=== PATIENT | male | born 1940 | race African-American/Black ===

== ENCOUNTER 2021-03-27 17:25 | Inpatient (IN) ==
[2021-03-27] MEDS ORDERED: ALBUTEROL/IPRATROPIUM 3 ML NEB RESP TX STA (17:51)
[2021-03-27] MEDS ORDERED: SODIUM CHLORIDE 0.9% 1,000 ML IV STA ×2 (18:22→19:23)
[2021-03-27] MEDS ORDERED: methylPREDNISolone SOD SUC 125 MG/2 ML VIAL IV STA (18:23)
[2021-03-27 18:40] LABS: Basophils % 0.5 % (0.0-0.8); Eosinophils % 0.2 % (0.00-10.9); Hematocrit 41.5 VOL% (42.0-52.0); Hemoglobin 13.3 GM/DL (14.0-18.0); Immature Granulocytes % 0.9 %; Immature Granulocytes Absolute 0.08 #; Lymphocytes # 0.5 10*3/uL (1.4-4.0); Lymphocytes % 5.4 % (21.2-54.2); Mean Corpuscular Volume 99.5 FL (87-102); Mean Platelet Volume 11.6 FL (9.6-12.0); Platelet Count 113 T/CUMM (130-400); Red Blood Count 4.17 MC/CUMM (3.8-5.5); Red Cell Distribution Width 13.8 % (9.3-17.3); White Blood Count 8.5 T/CUMM (4-12)
[2021-03-27 18:47] LABS: INR 0.9; PT Patient Result 10.5 SECS (10.5-12.0)
[2021-03-27 18:48] LABS: Alanine Aminotransferase 27 U/L (16-61); Albumin 3.7 G/DL (3.4-5.0); Alkaline Phosphatase 67 U/L (45-117); Aspartate Amino Transferase 60 U/L (0-37); Blood Urea Nitrogen 13 MG/DL (7-18); Calcium 9.1 MG/DL (8.5-10.1); Carbon Dioxide 28 MMOL/L (21-32); Estimated Glom Filtration Rate 74 ML/MIN; Glucose 128 MG/DL (74-106); Osmolality,Calculated 278.5 MOS/KG (273-304); Potassium 3.4 MMOL/L (3.5-5.1); Sodium 139 MMOL/L (136-145); Total Protein 7.2 G/DL (6.4-8.2)
[2021-03-27] MEDS ORDERED: ENOXAPARIN 30 MG/0.3 ML SYRINGE SUBCUT STA (19:22)
[2021-03-27] MEDS ORDERED: LEVOFLOXACIN INJ 750 MG/150 ML PREMIX IV STA (19:23)
[2021-03-27] MEDS ORDERED: LABETALOL 20 MG/4 ML SYRINGE IV STA (19:25)
[2021-03-27] MEDS ORDERED: ENOXAPARIN 100 MG/ML SYRINGE SUBCUT STA (20:06)
[2021-03-27] MEDS ORDERED: MORPHINE 2 MG/1 ML SYRINGE IV PRN (20:50)
[2021-03-27] MEDS ORDERED: guaiFENesin/DM ER 600-30 MG TABLET PO PRN (20:50)
[2021-03-27] MEDS ORDERED: GLUCAGON 1 MG VIAL IM PRN (20:50)
[2021-03-27] MEDS ORDERED: hydrALAZINE 20 MG/1 ML VIAL IV PRN (20:50)
[2021-03-27] MEDS ORDERED: ACETAMINOPHEN 325 MG TABLET PO PRN (20:50)
[2021-03-27] MEDS ORDERED: DOCUSATE SODIUM 100 MG CAPSULE PO PRN (20:50)
[2021-03-27] MEDS ORDERED: ONDANSETRON 4 MG/2 ML VIAL IV PRN (20:50)
[2021-03-27] MEDS ORDERED: NICOTINE 21 MG/24 HR PATCH TRANSDERM PRN (20:50)
[2021-03-27] MEDS ORDERED: LORazepam 2 MG/1 ML VIAL IV PRN (20:58)
[2021-03-27] MEDS ORDERED: DEXTROSE 10% 250 ML BAG IV PRN (20:58)
[2021-03-27] MEDS ORDERED: MAGNESIUM SULF RIDER 2 GM/50 ML PREMIX IV ONE (20:58)
[2021-03-27] MEDS ORDERED: cefTRIAXone 1,000 MG in SODIUM CHLORIDE 0.9% 100 ML IV SCH (21:00)
[2021-03-27 21:26] LABS: % Iron Saturation 6.9 % (18-50)
[2021-03-27 22:18] LABS: Bilirubin,Urine Negative (Negative); Blood, Urine Small mg/dL (Negative); Glucose,Urine (UA) Negative (Negative); Granular Casts,Urine 1 /LPF (0-1); Hyaline Casts,Urine 1 /LPF (0-3); Ketones,Urine Negative (Negative); Mucus,Urine Occasional /LPF (Occasional); Nitrite,Urine Negative (Negative); Protein,Urine 100 MG/DL; RBC,Urine 2 /HPF (0-4); Urine Appearance CLEAR (Clear); Urine Color Amber (Yellow); Urine Specific Gravity 1.024 (1.001-1.035)
[2021-03-27] MEDS: BUDESONIDE/FORMOTEROL 160-4.5 INHALER 6 GM INH SCH (22:41)
[2021-03-27 23:05] LABS: Folate > 24.00 NG/ML (5.38-24.0); Vitamin B12 601 PG/ML (211-911)
[2021-03-27] MEDS ORDERED: ALBUTEROL 2.5 MG/3 ML NEB RESP TX ONE (23:08)
[2021-03-28] MEDS: carvediloL 6.25 MG TABLET PO SCH ×3 (00:27→21:54)
[2021-03-28] MEDS: methylPREDNISolone SOD SUC 40 MG/1 ML VIAL IV SCH ×3 (00:28→18:29)
[2021-03-28] MEDS: AZITHROMYCIN INJ 500 MG in SODIUM CHLORIDE 0.9% 250 ML IV SCH ×2 (00:33→23:24)
[2021-03-28 05:32] LABS: Basophils % 0.5 % (0.0-0.8); Hematocrit 37.9 VOL% (42.0-52.0); Hemoglobin 11.8 GM/DL (14.0-18.0); Immature Granulocytes % 0.7 %; Immature Granulocytes Absolute 0.04 #; Lymphocytes # 0.3 10*3/uL (1.4-4.0); Lymphocytes % 5.6 % (21.2-54.2); Mean Corpuscular HGB Conc 31.1 GM/DL (32-36); Mean Corpuscular Volume 101.6 FL (87-102); Mean Platelet Volume 10.6 FL (9.6-12.0); Monocytes % 4.7 % (1.7-12.7); Neutrophils % 88.5 % (38.7-73.9); Platelet Count 99 T/CUMM (130-400); Red Blood Count 3.73 MC/CUMM (3.8-5.5); Red Cell Distribution Width 13.6 % (9.3-17.3); White Blood Count 5.7 T/CUMM (4-12)
[2021-03-28 05:35] LABS: Albumin 2.8 G/DL (3.4-5.0); Bilirubin,Total 0.4 MG/DL (0.20-1.00); Calcium 8.1 MG/DL (8.5-10.1); Osmolality,Calculated 281.5 MOS/KG (273-304); Potassium 4.6 MMOL/L (3.5-5.1); Risk Ratio 1.28; Total Protein 6.1 G/DL (6.4-8.2); VLDL Cholesterol 10.2 MG/DL
[2021-03-28 06:52] LABS: Platelet Estimate Adequate; Target Cells Few
[2021-03-28] MEDS: ALBUTEROL 2.5 MG/3 ML NEB RESP TX SCH ×2 (07:36)
[2021-03-28] MEDS ORDERED: LISINOPRIL/HCTZ 10-12.5 MG TABLET PO SCH (09:00)
[2021-03-28] MEDS ORDERED: methylPREDNISolone SOD SUC 125 MG/2 ML VIAL IV STA (09:10)
[2021-03-28] MEDS: ASPIRIN CHEW 81 MG TABLET PO SCH (10:04)
[2021-03-28] MEDS: MULTIVITAMIN (CENTRUM) TABLET PO SCH (10:04)
[2021-03-28] MEDS: PANTOPRAZOLE 40 MG TABLET PO SCH (10:04)
[2021-03-28] MEDS: FOLIC ACID 1 MG TABLET PO SCH (10:05)
[2021-03-28] MEDS: THIAMINE 100 MG TABLET PO SCH (10:05)
[2021-03-28] MEDS: BUDESONIDE/FORMOTEROL 160-4.5 INHALER 6 GM INH SCH ×2 (10:06→21:54)
[2021-03-28] MEDS ORDERED: FUROSEMIDE 40 MG/4 ML VIAL IV SCH (10:29)
[2021-03-28] MEDS: ALBUTEROL/IPRATROPIUM 3 ML NEB RESP TX SCH ×4 (10:55→22:55)
[2021-03-28] MEDS: MONTELUKAST 10 MG TABLET PO SCH (12:07)
[2021-03-28] MEDS: cefTRIAXone 2,000 MG in SODIUM CHLORIDE 0.9% 100 ML IV SCH (21:55)
[2021-03-28] MEDS: ENOXAPARIN 40 MG/0.4 ML SYRINGE SUBCUT SCH (21:55)
[2021-03-29] MEDS: methylPREDNISolone SOD SUC 40 MG/1 ML VIAL IV SCH ×4 (01:23→21:09)
[2021-03-29] MEDS: ALBUTEROL/IPRATROPIUM 3 ML NEB RESP TX SCH ×6 (02:45→23:50)
[2021-03-29 06:11] LABS: Basophils % 0.2 % (0.0-0.8); Hematocrit 37.8 VOL% (42.0-52.0); Immature Granulocytes % 0.7 %; Immature Granulocytes Absolute 0.09 #; Lymphocytes # 0.7 10*3/uL (1.4-4.0); Lymphocytes % 5.5 % (21.2-54.2); Mean Corpuscular HGB Conc 31.7 GM/DL (32-36); Mean Corpuscular Volume 101.6 FL (87-102); Monocytes % 8.3 % (1.7-12.7); Neutrophils % 85.3 % (38.7-73.9); Platelet Count 128 T/CUMM (130-400); Red Blood Count 3.72 MC/CUMM (3.8-5.5); Red Cell Distribution Width 13.2 % (9.3-17.3); White Blood Count 12.8 T/CUMM (4-12)
[2021-03-29 06:40] LABS: Alanine Aminotransferase 22 U/L (16-61); Albumin 2.8 G/DL (3.4-5.0); Alkaline Phosphatase 52 U/L (45-117); Aspartate Amino Transferase 60 U/L (0-37); Bilirubin,Total < 0.39 MG/DL (0.20-1.00); Blood Urea Nitrogen 24 MG/DL (7-18); Calcium 8.8 MG/DL (8.5-10.1); Carbon Dioxide 30 MMOL/L (21-32); Estimated Glom Filtration Rate 69 ML/MIN; Glucose 124 MG/DL (74-106); Osmolality,Calculated 283.4 MOS/KG (273-304); Potassium 4.5 MMOL/L (3.5-5.1); Sodium 140 MMOL/L (136-145); Total Protein 5.9 G/DL (6.4-8.2)
[2021-03-29] MEDS: THIAMINE 100 MG TABLET PO SCH (09:02)
[2021-03-29] MEDS: ASPIRIN CHEW 81 MG TABLET PO SCH (09:02)
[2021-03-29] MEDS: OLMESARTAN 20 MG TABLET PO SCH (09:02)
[2021-03-29] MEDS: carvediloL 6.25 MG TABLET PO SCH ×2 (09:02→21:09)
[2021-03-29] MEDS: FOLIC ACID 1 MG TABLET PO SCH (09:03)
[2021-03-29] MEDS: hydroCHLOROthiazide 25 MG TABLET PO SCH (09:03)
[2021-03-29] MEDS: MONTELUKAST 10 MG TABLET PO SCH (09:03)
[2021-03-29] MEDS: MULTIVITAMIN (CENTRUM) TABLET PO SCH (09:03)
[2021-03-29] MEDS: PANTOPRAZOLE 40 MG TABLET PO SCH (09:03)
[2021-03-29] MEDS: BUDESONIDE/FORMOTEROL 160-4.5 INHALER 6 GM INH SCH ×2 (09:05→21:10)
[2021-03-29 13:23] LABS: Free T4 (Free Thyroxine) 0.68 NG/DL (0.76-1.46)
[2021-03-29] MEDS: ENOXAPARIN 40 MG/0.4 ML SYRINGE SUBCUT SCH (21:09)
[2021-03-29] MEDS: AZITHROMYCIN INJ 500 MG in SODIUM CHLORIDE 0.9% 250 ML IV SCH (21:10)
[2021-03-29] MEDS: cefTRIAXone 2,000 MG in SODIUM CHLORIDE 0.9% 100 ML IV SCH (21:10)
[2021-03-30] MEDS: ALBUTEROL/IPRATROPIUM 3 ML NEB RESP TX SCH ×4 (03:40→14:30)
[2021-03-30] MEDS: methylPREDNISolone SOD SUC 40 MG/1 ML VIAL IV SCH ×2 (05:16→15:28)
[2021-03-30 05:33] LABS: Basophils % 0.1 % (0.0-0.8); Hematocrit 35.6 VOL% (42.0-52.0); Hemoglobin 11.4 GM/DL (14.0-18.0); Immature Granulocytes % 0.8 %; Immature Granulocytes Absolute 0.13 #; Lymphocytes # 0.8 10*3/uL (1.4-4.0); Lymphocytes % 5.1 % (21.2-54.2); Mean Corpuscular Volume 101.1 FL (87-102); Mean Platelet Volume 10.6 FL (9.6-12.0); Monocytes % 9.1 % (1.7-12.7); Neutrophils % 84.9 % (38.7-73.9); Platelet Count 143 T/CUMM (130-400); Red Blood Count 3.52 MC/CUMM (3.8-5.5); Red Cell Distribution Width 13.2 % (9.3-17.3); White Blood Count 15.5 T/CUMM (4-12)
[2021-03-30 06:19] LABS: Albumin 2.6 G/DL (3.4-5.0); Bilirubin,Total 0.7 MG/DL (0.20-1.00); Calcium 8.4 MG/DL (8.5-10.1); Osmolality,Calculated 286.3 MOS/KG (273-304); Potassium 4.2 MMOL/L (3.5-5.1); Total Protein 5.5 G/DL (6.4-8.2)
[2021-03-30] MEDS: ASPIRIN CHEW 81 MG TABLET PO SCH (08:56)
[2021-03-30] MEDS: THIAMINE 100 MG TABLET PO SCH (08:56)
[2021-03-30] MEDS: OLMESARTAN 20 MG TABLET PO SCH (08:56)
[2021-03-30] MEDS: MONTELUKAST 10 MG TABLET PO SCH (08:56)
[2021-03-30] MEDS: hydroCHLOROthiazide 25 MG TABLET PO SCH (08:56)
[2021-03-30] MEDS: FOLIC ACID 1 MG TABLET PO SCH (08:56)
[2021-03-30] MEDS: PANTOPRAZOLE 40 MG TABLET PO SCH (08:57)
[2021-03-30] MEDS: carvediloL 6.25 MG TABLET PO SCH (08:57)
[2021-03-30] MEDS: MULTIVITAMIN (CENTRUM) TABLET PO SCH (08:57)
[2021-03-30] MEDS: BUDESONIDE/FORMOTEROL 160-4.5 INHALER 6 GM INH SCH (08:57)
[2021-03-30 15:36] VITALS: BP 161/90
== END 2021-03-30 16:14 | disposition home health service (06) | DRG 191 ==
LOC: EDUNIT# → EDBD → N.ED 17:25 → N.EDINP 17:25 → SUATTDRO 20:46 → N.EDINP 03-28 03:07 → N.TELES 03-28 03:32
PROVIDERS: ADMIT Emergency Medicine; ATTEND Internal Medicine Geriatric Medicine